=== PATIENT | male | born 1955 | race Caucasian/White ===

== ENCOUNTER → 2016-12-29 | Outpatient (CLI) | payer MEDICARE, MEDICAID ==
[~2016-12-29] MED LIST: AMLODIPINE BESY10 M1 PO; AMOXICILLIN 50500 MG PO; APRESOLINE 50MG50 MG PO; ASPIRIN 81MG TA81 MG PO; BACTRIM DS 8001 TAB PO; BYETTA250 MCG/ML SC; DARVOCET-N 1001 EACH PO; FENOFIBRATE145 MG PO; FUROSEMIDE 40MG40 M1 PO; HUMULIN 70/30 KW3 ML SC; KEFLEX 500MG.500 MG PO; LEVAQUIN 750 M750 MG PO; LORTAB 5/500 501 TAB PO; LOVAZA1 GM PO; MEDROL 4MG. DOSE4 MG PO; METOPROLOL SUC100 M1 PO; PERCOCET 325 MG1 TA4 PO; PRAVASTATIN SOD80 MG PO; RANITIDINE150 M1 PO; TAMSULOSIN HYD0.4 M1 PO; ULTRAM 50 MG TA50 MG PO; ULTRAM50 MG PO
[2016-12-30 09:39] LABS: Creatinine, Urine 63.4 mg/dL (Not Estab.); Microalbumin, Urine <3.0 ug/mL (Not Estab.)
== END ==
LOC: LAB 10:15
PROVIDERS: Nurse Practitioner Family
DX: N40.0 Benign prostatic hyperplasia without lower urinary tract symptoms (principal); E11.22 Type 2 diabetes mellitus with diabetic chronic kidney disease; E78.5 Hyperlipidemia, unspecified